=== PATIENT | female | born 1975 | race African-American/Black ===

== ENCOUNTER 2022-10-02 14:01 | Emergency (ER) | payer BC ==
[~2022-10-02] VITALS: Ht 165.1 cm; Wt 81.2 kg
[2022-10-02 14:18] VITALS: BP 126/63
--- NOTE | 2022-10-02 14:29 | NUR ---
Patient ambulated to bed 6
--- NOTE | 2022-10-02 14:41 | NUR ---
Patient being evaluated by physician at bedside.
[2022-10-02] MEDS ORDERED: KETOROLAC 15 MG/ML VIAL IVP ONE (14:50)
[2022-10-02] MEDS ORDERED: NACL 0.9% 1,000 ML IV ONE (14:50)
--- NOTE | 2022-10-02 14:55 | NUR ---
47 y/o female bib self as a referral from clinic d/i [facility] flank pain x 6 days. Per patient, pain has increased. Patient denies any falls, trauma or injury. Denies any dysuria. Medical History: HTN, Gastritis, Hyesterectomy, R Ankle Surgery ALLERGY: SULFA
[2022-10-02 15:09] LABS: HEMATOCRIT 41.3 % (36-48); MEAN CORPUSCULAR HEMOGLOBIN 33 pg (27-31); MEAN CORPUSCULAR HGB CONC 34 g/dL (33-37); MEAN CORPUSCULAR VOLUME 96.6 fL (80-94); PLATELET COUNT (AUTO) 297 K/uL (140-450); RED BLOOD CELL COUNT(AUTO) 4.28 MIL/uL (4.20-5.40); RED CELL DISTRIBUTION WIDTH 12.5 % (11.6-13.7); WHITE BLOOD COUNT (AUTO) 10.2 K/uL (4.8-10.8)
[2022-10-02 15:16] LABS: APPEARANCE,URINE CLEAR (CLEAR); BILIRUBIN,URINE NEGATIVE (NEGATIVE); BLOOD, URINE TRACE-I (NEGATIVE); COLOR,URINE YELLOW (YELLOW); LEUKOCYTE ESTERASE ,URINE NEGATIVE (NEGATIVE); NITRITE, URINE NEGATIVE (NEGATIVE); UGLUCOSE NEGATIVE (NEGATIVE)
[2022-10-02 15:25] LABS: ALBUMIN 3.9 g/dL (3.4-5.0); ANION GAP 10.7 (8-16); CARBON DIOXIDE 29.7 mmol/L (21-32); CREATININE 0.8 mg/dL (0.6-1.3); POTASSIUM 3.4 mmol/L (3.5-5.1); TOTAL BILIRUBIN 0.5 mg/dL (0.0-1.0)
[2022-10-02 15:38] LABS: RBC,URINE 0-5 /HPF (0-5); TRICHOMONAS,URINE None Seen /HPF (None Seen); WBC,URINE 0-5 /HPF (0-5); YEAST,URINE None Seen /HPF (None Seen)
[2022-10-02 15:45] LABS: EOSINOPHILS % (MANUAL) 1 % (0-4); MONOCYTES % (MANUAL) 7 % (5-12)
[2022-10-02 15:46] LABS: LYMPHOCYTES % (MANUAL) 52 % (20-46)
--- NOTE | 2022-10-02 16:08 | NUR ---
Patient is taken to CT via gurney.
--- NOTE | 2022-10-02 16:20 | NUR ---
Patient returned from CT.
--- NOTE | 2022-10-02 17:45 | NUR ---
Dr. Yang re-evaluating patient at bedside.
[2022-10-02 18:11] VITALS: BP 148/87
--- NOTE | 2022-10-02 18:11 | NUR ---
Patient discharged with v/s stable. Written and verbal after care instructions given. Patient verbalized understanding. Ambulatory with steady gait. All questions addressed prior to discharge. Advised to follow up with PMD.
--- NOTE | 2022-10-02 18:17 | NUR ---
The patient's care was reviewed and supervised by ED Agency Nurse 8, RN, RN.
== END 2022-10-02 18:11 | disposition home or self-care (01) ==
LOC: MED 14:01
DX: K59.00 Constipation, unspecified (principal)
CPT/HCPCS: 36415; 74177; 80053; 81001; 81025; 82150; 83690; 84703; 85025; 96361; 96374; 99285; J1885; Q9967